=== PATIENT | male | born 1990 | race Caucasian/White ===

== ENCOUNTER 2017-05-11 11:55 | Emergency (ER) | payer OTHER ==
[2017-05-11 12:08] VITALS: BP 145/78
--- NOTE | 2017-05-30 15:59 | UC ---
Abdominal Pain Male HPI - HPI Summary HPI Summary: pt c/o of pain in lower abdomen that started yesterday and testicular pain for that started today. pt also reports changes in urine odor that started 1 week ago. no other urinary sx. no penile discharge. - History of Current Complaint Chief Complaint: UCAbdominalPain Stated Complaint: URINARY ISSUE Time Seen by Provider: 05/11/17 12:36 Hx Obtained From: Patient Onset/Duration: Gradual Onset, Lasting Days, Still Present, Worse Since - today Timing: Constant Severity Initially: Moderate Severity Currently: Moderate Pain Intensity: 3 Pain Scale Used: 0-10 Numeric Location: Suprapubic, Other - left testical Radiates: No Character: Dull Aggravating Factor(s): Nothing Alleviating Factor(s): Nothing Associated Signs And Symptoms: Positive: Urinary Symptoms. Negative: Diaphoresis, Fever, Cough, Chest Pain, Dizzy, Back Pain, Constipation, Blood in Stool, Decreased Appetite, Nausea, Vomiting, Diarrhea, Penile Discharge - Risk Factors Testicular Torsion: Negative - Allergies/Home Medications Allergies/Adverse Reactions: Allergies Allergy/AdvReac Type Severity Reaction Status Date / Time No Known Allergies Allergy Verified 05/11/17 12:08 PMH/Surg Hx/FS Hx/Imm Hx Previously Healthy: Yes - Surgical History Surgical History: None - Family History Known Family History: Negative: Cardiac Disease, Hypertension, Diabetes - Social History Alcohol Use: Occasionally Substance Use Type: None Smoking Status (MU): Never Smoked Tobacco Review of Systems Constitutional: Negative Skin: Negative Eyes: Negative ENT: Negative Respiratory: Negative Cardiovascular: Negative Gastrointestinal: Abdominal Pain Genitourinary: Other - left testical pain Motor: Negative Neurovascular: Negative Musculoskeletal: Negative Neurological: Negative Psychological: Negative All Other Systems Reviewed And Are Negative: Yes Physical Exam Triage Information Reviewed: Yes Appearance: Well-Appearing, No Pain Distress, Well-Nourished Vital Signs: Initial Vital Signs Temp 98.8 F 05/11/17 12:05 Pulse 72 05/11/17 12:05 Resp 12 05/11/17 12:05 BP 145/78 05/11/17 12:05 Pulse Ox 100 05/11/17 12:05 Vital Signs Reviewed: Yes Eyes: Positive: Conjunctiva Clear. Negative: Discharge ENT: Positive: Hearing grossly normal. Negative: Muffled/hoarse voice Neck: Positive: Supple Respiratory: Positive: Lungs clear, Normal breath sounds, No respiratory distress, No accessory muscle use Cardiovascular: Positive: RRR, No Murmur Abdomen Description: Positive: Nontender, Soft. Negative: CVA Tenderness (R), CVA Tenderness (L), Distended, Guarding, McBurney's Point Tenderness, Peritoneal Signs Bowel Sounds: Positive: Present Musculoskeletal Exam: Normal Neurological: Positive: Alert, Muscle Tone Normal Psychological: Positive: Age Appropriate Behavior Skin Exam: Normal - Additional Comments left testical tender and minimal swelling Abd Pain Male Course/Dx - Differential Dx/Clinical Impression Differential Diagnosis/HQI/PQRI: Epididymitis, Testicular Torsion, Ureteral Stone, Urinary Tract Infection Provider Diagnoses: abd pain of unknown kirill, testicular pain Discharge - Discharge Plan Condition: Stable Disposition: OTHER Discharge Disposition Comment: pt went to ed via private car Patient Education Materials: Testicle Pain (ED) Referrals: Darryl Doll, [employer] COMM[employer]ICATIONS ARCHITECT [Primary Care Provider] - If Needed Additional Instructions: YOU REQUIRE FURTHER EVALUATION TO ENSURE SAFETY OF YOUR TESTICLE. UNFORTUNATELY , WE DO NOT HAVE THE RESOURCES HERE TO DO THAT EVALUATION. YOU SHOULD GO TO THE EMERGENCY DEPRTMENT IMMEDIATELY FOR THAT FURTHER EVALUATION.
== END 2017-05-11 13:00 ==
LOC: UCEAST 11:55
DX: R10.30 Lower abdominal pain, unspecified (principal); N50.812 Left testicular pain; N50.89 Other specified disorders of the male genital organs
CPT/HCPCS: 81003; 99211; G0463

== ENCOUNTER 2017-05-11 13:23 | Emergency (ER) | payer OTHER ==
--- NOTE | 2017-05-11 15:13 | RAD ---
INDICATION: Testicular pain left side. COMPARISON: There are no prior studies available for comparison. TECHNIQUE: Multiple real-time images of the testicles were obtained including color Doppler images and Doppler tracings. FINDINGS: The testicles are normal in size and shape. The right testicle measured 4.7 x 2.5 x 2.9 cm and the left testicle measured 4.8 x 2.6 x 2.9 cm. There is bilateral testicular microlithiasis as well as coarse calcifications in both testicles. No mass is seen. There is symmetric vascular flow within both testicles. There is a 6 x 6 x 4 mm left epididymal cyst. There is a small left hydrocele. IMPRESSION: 1. NO EVIDENCE FOR TESTICULAR TORSION OR EPIDIDYMITIS. 2. 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 RECOMMEND A FOLLOW-UP TESTICULAR ULTRASOUND IN ONE YEAR'S TIME. 3. SMALL LEFT EPIDIDYMAL CYST AND SMALL LEFT HYDROCELE.
[2017-05-11 15:53] LABS: Hematocrit 45 % (42-52); Hemoglobin 15.7 g/dl (14.0-18.0); Mean Corpuscular HGB Conc 35 g/dl (31-36); Mean Corpuscular Hemoglobin 29 pg (27-31); Mean Corpuscular Volume 84 fL (80-94); Mean Platelet Volume 7 um3 (7.4-10.4); Red Blood Count 5.34 10^6/ul (4.0-5.4); Red Cell Distribution Width 13 % (10.5-15); White Blood Count 6.1 10^3/ul (3.5-10.8)
[2017-05-11 15:59] LABS: Urine Bilirubin Negative (Negative); Urine Glucose Negative (Negative); Urine Nitrite Negative (Negative)
[2017-05-11 16:52] LABS: Albumin 4.7 g/dL (3.2-5.2); Calcium 9.6 mg/dL (8.6-10.3); Globulin 2.4 g/dL (2-4); Potassium 4.1 mmol/L (3.5-5.0); Total Bilirubin 0.7 mg/dL (0.2-1.0); Total Protein 7.1 g/dL (6.4-8.9)
--- NOTE | 2017-05-11 17:05 | ED ---
Eileen Phelan Edward, scribed for Wilfred Amador on 05/11/17 at 1508 . GI/ HPI - HPI Summary HPI Summary: 26 y/o male presents to the ED sent from [facility] c/o gradual onset lower ABD pain located at the suprapubic region and L testicular pain starting yesterday. The pain is mild and described as a discomfort. Associated sx: odorous urine for a week. Denies N/V/D, fever. No SHx. - History of Current Complaint Chief Complaint: EDUrogenitalProblems Time Seen by Provider: 05/11/17 15:06 Stated Complaint: TESTICULAR PAIN-SENT FROM Hx Obtained From: Patient Onset/Duration: Started Days Ago - Yesterday Severity: Mild Current Severity: Mild Pain Intensity: 3 Location of Pain: Suprapubic Additional Locations for Males: Testicles Pain Characteristics: Other: - Discomfort Associated Signs and Symptoms: Positive: Other: - Odorous urine. Negative: Nausea, Vomiting, Diarrhea, Fever - Allergy/Home Medications Allergies/Adverse Reactions: Allergies Allergy/AdvReac Type Severity Reaction Status Date / Time No Known Allergies Allergy Verified 05/11/17 12:08 PMH/Surg Hx/FS Hx/Imm Hx Previously Healthy: Yes Psychiatric History: Denies: Other Psychiatric Issues/Disorders - Surgical History Surgery Procedure, Year, and Place: None Infectious Disease History: No Infectious Disease History: Denies: Traveled Outside the [place] in Last 30 Days - Family History Known Family History: Negative: Cardiac Disease, Hypertension, Diabetes - Social History Occupation: Employed Full-time Alcohol Use: Occasionally Hx Substance Use: No Substance Use Type: Reports: None Hx Tobacco Use: No Smoking Status (MU): Never Smoked Tobacco Review of Systems Constitutional: Negative Eyes: Negative ENT: Negative Cardiovascular: Negative Respiratory: Negative Positive: Abdominal Pain - lower @ suprapubic region Genitourinary: Other - odorous urine Positive: pain - testicular Musculoskeletal: Negative Skin: Negative Neurological: Negative Psychological: Normal All Other Systems Reviewed And Are Negative: Yes Physical Exam Triage Information Reviewed: Yes Vital Signs On Initial Exam: Initial Vitals Temp Pulse Resp BP Pulse Ox 97.6 F 68 17 147/77 100 05/11/17 13:30 05/11/17 13:30 05/11/17 13:30 05/11/17 13:30 05/11/17 13:30 Vital Signs Reviewed: Yes Appearance: Positive: Well-Appearing, No Pain Distress Skin: Positive: Warm, Skin Color Reflects Adequate Perfusion, Dry Head/Face: Positive: Normal Head/Face Inspection Eyes: Positive: EOMI, NEREYDA ENT: Positive: Normal ENT inspection Neck: Positive: Supple, Nontender Respiratory/Lung Sounds: Positive: Clear to Auscultation, Breath Sounds Present Cardiovascular: Positive: RRR, Pulses are Symmetrical in both Upper and Lower Extremities Abdomen Description: Positive: Nontender, Soft Bowel Sounds: Positive: Present Musculoskeletal: Positive: Normal, Strength/ROM Intact Neurological: Positive: Normal, Sensory/Motor Intact, Alert, Oriented to Person Place, Time Diagnostics - Vital Signs Vital Signs Temp Pulse Resp BP Pulse Ox 05/11/17 13:30 97.6 F 68 17 147/77 100 - Laboratory Result Diagrams: 05/11/17 15:45 05/11/17 15:45 Lab Statement: Any lab studies that have been ordered have been reviewed, and results considered in the medical decision making process. - Ultrasound No standard instances Ultrasound Interpretation: Positive (See Comments) - TESTICULAR US - 1. NO EVIDENCE FOR TESTICULAR TORSION OR EPIDIDYMITIS. 2. 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 RECOMMEND A FOLLOW-UP TESTICULAR ULTRASOUND IN ONE YEAR'S TIME. 3. SMALL LEFT EPIDIDYMAL CYST AND SMALL LEFT HYDROCELE. ED PHYSICIAN AGREEABLE Ultrasound Interpretation Completed By: Radiologist Re-Evaluation - Re-Evaluation 1 Re-Evaluation Time: 16:55 Comment: Discuss test results. Pt will be d/c home GIGU Course/Dx - Course Assessment/Plan: 26 y/o male presents to the ED sent from [facility] c/o gradual onset lower ABD pain located at the suprapubic region and L testicular pain starting yesterday. The pain is mild and described as a discomfort. Associated sx: odorous urine for a week. Denies N/V/D, fever. No SHx. TESTICULAR US - 1. NO EVIDENCE FOR TESTICULAR TORSION OR EPIDIDYMITIS. 2. 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 RECOMMEND A FOLLOW-UP TESTICULAR ULTRASOUND IN ONE YEAR'S TIME. 3. SMALL LEFT EPIDIDYMAL CYST AND SMALL LEFT HYDROCELE. Labs within normal limits. Small hydrocele on L testicle. Will refer to urology in 1 week. Pt will be d/c home. - Diagnoses Provider Diagnoses: Scrotal pain, Hydrocele Discharge - Discharge Plan Condition: Stable Disposition: HOME Prescriptions: Ibuprofen TAB* [Motrin TAB* 600 MG] 600 mg PO Q8H PRN #20 tab MDD 3 PRN Reason: Pain Patient Education Materials: Hydrocele (ED), Scrotal Pain (ED) Referrals: Socrates Stephens MD [Medical Doctor] - 7 Days (PLEASE F/U IN 1 WEEK) The documentation as recorded by the Eileen lopez Edward accurately reflects the service I personally performed and the decisions made by Perry fulton Emmanuel.
[2017-05-11 17:09] VITALS: BP 152/72
== END 2017-05-11 17:05 | disposition home or self-care (01) ==
LOC: ED 13:23
DX: N50.82 Scrotal pain (principal); N43.3 Hydrocele, unspecified; R10.30 Lower abdominal pain, unspecified
CPT/HCPCS: 36415; 76870; 80053; 81003; 83690; 85025; 99282